=== PATIENT | male | born 1960 | race Caucasian/White ===

== ENCOUNTER → 2020-10-23 | Outpatient (CLI) | payer BC ==
[~2020-10-23] VITALS: Ht 190 cm; Wt 116.0 kg
[~2020-10-23] MED LIST: CATHETER FLUSH 10 ML SYR IV PRN; OXAP600T PO
[2020-10-23 08:05] VITALS: BP 133/89
--- NOTE | 2020-10-26 13:57 | STRESS TEST ---
DATE OF SERVICE: 10/23/2020 RESTING AND POST EXERCISE TECHNETIUM-99M TETROFOSMIN SPECT CT IMAGING ORDERING PHYSICIAN: Dr. Bobo. CLINICAL DIAGNOSIS: Fatigue and malaise. Baseline images were carried out after injection of 10.28 mCi of technetium-99m Tetrofosmin. This was followed by exercise on a treadmill that was carried out under Dr. Bobo's supervision and is reported separately by Dr. Bobo. After he had attained more than 85% of maximum predicted heart rate, 30.7 mCi of technetium-99m Tetrofosmin were injected and the exercise was continued for another minute. Details of the stress test are to be recorded by Dr. Bobo. Review of images at rest and following stress does not indicate any distinct perfusion defects consistent with significant myocardial ischemia or infarction. Gated images show well preserved global left ventricular systolic function with a calculated ejection fraction of 49%. Left ventricular end diastolic volume is 123 mL. CONCLUSIONS: 1. Mild cardiomegaly. 2. No evidence of significant myocardial ischemia or infarction. 3. Well preserved global left ventricular systolic function without distinct regional wall motion abnormality see and with a calculated ejection fraction of 49%. Job ID: [id number] DocumentID: [id number] Dictated Date: 10/26/2020 10:03:41 Direct Care Staffer Date: 10/26/2020 13:57:07 Dictated By: ALOK MALDONADO MD, MA, FACP, FACC, MTDD
== END ==
LOC: CARD 07:00
PROVIDERS: ATTEND Internal Medicine
DX: R53.83 Other fatigue (principal)
CPT/HCPCS: 78452; 93017; A9502